=== PATIENT | male | born 1985 | race Caucasian/White ===

== ENCOUNTER 2021-04-30 22:37 | Emergency (ER) | payer SELFPAY | END 2021-04-30 23:50 | disposition left against medical advice (07) | LOC: ER 22:37 | DX: Z53.21 Procedure and treatment not carried out due to patient leaving prior to being seen by health care provider (principal) ==

== ENCOUNTER 2021-05-01 10:49 | Emergency (ER) | payer SELFPAY ==
[~2021-05-01] VITALS: Ht 182.9 cm; Wt 113.4 kg
== END 2021-05-01 11:51 | disposition home or self-care (01) ==
LOC: ER 10:49
DX: U07.1 COVID-19 (principal)
CPT/HCPCS: 99284

== ENCOUNTER → 2022-08-12 | Outpatient (CLI) | payer SELFPAY ==
[2022-08-14 03:10] LABS: CHLAMYDIA TRACHOMATIS, NAA Negative (Negative)
== END | disposition home or self-care (01) ==
LOC: LAB SHORT 13:22
PROVIDERS: Family Medicine
DX: R82.90 Unspecified abnormal findings in urine (principal)
CPT/HCPCS: 87086; 87491; 87591